=== PATIENT | male | born 1940 | race Hispanic/Latino ===

== ENCOUNTER 2020-05-30 10:10 | Inpatient (IN) | payer MEDICARE, BC ==
[2020-05-30 11:25] LABS: Hemoglobin 11.3 g/dL (13.5-17.5); Mean Corpuscular Hemoglobin 32.9 pg (27.0-33.0); Mean Corpuscular Volume 96.8 fl (81.2-95.1); Mean Platelet Volume 11.6 fl (7.4-10.4); Platelet Count 186 10x3/uL (150-450); RBC Distribution Width 19.9 % (11.5-14.5); Red Blood Cell (RBC) Count 3.43 10x6/uL (4.32-5.72); White Blood Cell (WBC) Count 62.8 10x3/uL (3.5-10.5)
[2020-05-30 11:28] LABS: MDiff Complete? YES
[2020-05-30 11:31] LABS: ALT (SGPT) 24 U/L (8-55); AST (SGOT) 35 U/L (5-34); Albumin 3.9 g/dL (3.4-4.8); Alkaline Phosphatase 85 U/L (40-110); Anion Gap 16 mmol/L (10-20); BUN (Urea Nitrogen) 11 mg/dL (8.4-25.7); Bilirubin, Total 0.7 mg/dL (0.2-1.2); Calc. Creatinine Clearance 0 mL/min (70-130); Carbon Dioxide 25 mmol/L (23-31); Chloride 94 mmol/L (98-107); Globulin 4.3 g/dL (2.4-3.5); Glucose 145 mg/dL (83-110); Potassium 3.7 mmol/L (3.5-5.1); Protein, Total 8.2 g/dL (5.8-8.1); Sodium 131 mmol/L (136-145)
[2020-05-30] MEDS ORDERED: Dexamethasone 10 MG/ML VIAL ONE (11:38)
[2020-05-30] MEDS ORDERED: Acetaminophen 500 MG TAB ONE (11:38)
[2020-05-30 11:48] LABS: Band 18 % (5-11); Lymphocytes 8 % (21-51); Metamyelocyte 1 % (0-0); Monocytes 2 % (0-10); Myelocyte 2 % (0-0); Neutrophil 69 % (42-75)
[2020-05-30 11:50] LABS: Platelet Morphology Comment Appears Adequate; Reflex for Review?? YES
[2020-05-30 11:52] LABS: RBC Morphology Normal
[2020-05-30] MEDS ORDERED: Senokot S 8.6-50 MG TAB PO PRN (13:59)
[2020-05-30] MEDS ORDERED: Bisacodyl 5 MG TAB PO PRN (13:59)
[2020-05-30] MEDS ORDERED: HYDROcodone/Acetaminophen 5/325 mg Tablet PO PRN (13:59)
[2020-05-30] MEDS ORDERED: Bisacodyl 10 MG SUPP PR PRN (13:59)
[2020-05-30] MEDS ORDERED: Guaifenesin DM 100-10/5 ML UDCUP PO PRN (13:59)
[2020-05-30] MEDS ORDERED: Acetaminophen 325 MG TAB PO PRN (13:59)
[2020-05-30 14:09] LABS: Lactic Acid 0.9 mmol/L (0.5-2.2)
[2020-05-30 15:34] VITALS: BMI 26.6
[2020-05-30] MEDS ORDERED: Aspirin Chewable 81 MG TAB PO SCH (16:00)
[2020-05-30] MEDS ORDERED: Tamsulosin HCl 0.4 MG CAP PO SCH (16:00)
[2020-05-30] MEDS ORDERED: Metoprolol Tartrate 50 MG TAB PO SCH (16:00)
[2020-05-30] MEDS ORDERED: Hydroxyurea 500 MG CAP PO SCH (16:00)
[2020-05-30] MEDS ORDERED: REMDESIVIR (EUA) 200 MG in Sodium Chloride 0.9% 250 ML 210 ML IV SCH (19:30)
[2020-05-30] MEDS: Enoxaparin Sodium 40 MG/0.4 ML SYRINGE SC SCH (21:10)
[2020-05-30] MEDS: Timolol 0.5% Ophth Soln 5 ml Bottle EA EYE SCH (21:10)
[2020-05-30] MEDS: Rosuvastatin 20 MG TAB PO SCH (21:10)
[2020-05-30] MEDS: Dorzolamide HCl 2% Ophth Soln 10 ml Bottle EA EYE SCH (21:18)
[2020-05-30] MEDS ORDERED: Melatonin 3 MG TAB PO PRN (23:56)
[2020-05-31 05:11] LABS: SARS-CoV-2 PCR by NAA DETECTED (NotDetected)
[2020-05-31 08:15] LABS: Hemoglobin 10.7 g/dL (13.5-17.5); Mean Corpuscular HGB CONC 33.3 g/dL (32.0-36.0); Mean Corpuscular Hemoglobin 32.6 pg (27.0-33.0); Mean Corpuscular Volume 97.9 fl (81.2-95.1); Mean Platelet Volume 11.8 fl (7.4-10.4); Platelet Count 197 10x3/uL (150-450); RBC Distribution Width 20.1 % (11.5-14.5); Red Blood Cell (RBC) Count 3.28 10x6/uL (4.32-5.72); White Blood Cell (WBC) Count 67.7 10x3/uL (3.5-10.5)
[2020-05-31 08:42] LABS: ALT (SGPT) 37 U/L (8-55); AST (SGOT) 48 U/L (5-34); Albumin 3.4 g/dL (3.4-4.8); Alkaline Phosphatase 87 U/L (40-110); Anion Gap 13 mmol/L (10-20); BUN (Urea Nitrogen) 17 mg/dL (8.4-25.7); Bilirubin, Total 0.4 mg/dL (0.2-1.2); CRP (Inflammatory) 28.33 mg/dL (= or < 0.5); Calc. Creatinine Clearance 81 mL/min (70-130); Calcium 8.4 mg/dL (7.8-10.44); Carbon Dioxide 26 mmol/L (23-31); Chloride 98 mmol/L (98-107); Globulin 3.9 g/dL (2.4-3.5); Glucose 126 mg/dL (83-110); Protein, Total 7.3 g/dL (5.8-8.1); Sodium 133 mmol/L (136-145)
[2020-05-31] MEDS: Ascorbic Acid 500 mg Chewable Tablet PO SCH (08:50)
[2020-05-31] MEDS: Dexamethasone 4 mg/ml Vial SLOW IVP SCH ×2 (08:51→20:46)
[2020-05-31] MEDS: Zinc Sulfate 220 MG CAP PO SCH (08:51)
[2020-05-31] MEDS: Cholecalciferol (Vitamin D3) 400 UNITS TAB PO SCH (08:52)
[2020-05-31] MEDS: Metoprolol Tartrate 50 MG TAB PO SCH (08:52)
[2020-05-31] MEDS: Colchicine 0.6 MG TAB PO SCH ×2 (08:52→20:46)
[2020-05-31] MEDS: Timolol 0.5% Ophth Soln 5 ml Bottle EA EYE SCH ×2 (08:52→20:30)
[2020-05-31 08:53] LABS: Band 21 % (5-11); Lymphocytes 2 % (21-51); Metamyelocyte 2 % (0-0); Neutrophil 70 % (42-75)
[2020-05-31] MEDS: Aspirin Chewable 81 MG TAB PO SCH (08:53)
[2020-05-31] MEDS: Hydroxyurea 500 MG CAP PO SCH (08:53)
[2020-05-31] MEDS: Dorzolamide HCl 2% Ophth Soln 10 ml Bottle EA EYE SCH ×2 (08:53→21:04)
[2020-05-31 08:54] LABS: Monocytes 3 % (0-10); Myelocyte 2 % (0-0)
[2020-05-31] MEDS: Enoxaparin Sodium 40 MG/0.4 ML SYRINGE SC SCH ×2 (08:54→20:46)
[2020-05-31 08:56] LABS: Large Platelets SLIGHT; Platelet Morphology Comment Appears Adequate
[2020-05-31] MEDS: Tamsulosin HCl 0.4 MG CAP PO SCH (08:57)
[2020-05-31 09:00] LABS: MDiff Complete? YES
[2020-05-31] MEDS ORDERED: Dexamethasone 4 mg/ml Vial SLOW IVP SCH (09:00)
[2020-05-31] MEDS: Lidocaine 5% Patch TD SCH (10:44)
[2020-05-31] MEDS: REMDESIVIR (EUA) 100 MG in Sodium Chloride 0.9% 250 ML 230 ML IV SCH (19:56)
[2020-05-31] MEDS: Rosuvastatin 20 MG TAB PO SCH (20:46)
[2020-05-31] MEDS: Transdermal Patch Removal TOP SCH (22:38)
[2020-06-01 06:08] LABS: Hemoglobin 10.7 g/dL (13.5-17.5); Mean Corpuscular HGB CONC 33.3 g/dL (32.0-36.0); Mean Corpuscular Hemoglobin 33.3 pg (27.0-33.0); Mean Platelet Volume 12.1 fl (7.4-10.4); Platelet Count 213 10x3/uL (150-450); Red Blood Cell (RBC) Count 3.21 10x6/uL (4.32-5.72); White Blood Cell (WBC) Count 58.7 10x3/uL (3.5-10.5)
[2020-06-01 06:23] LABS: ALT (SGPT) 62 U/L (8-55); AST (SGOT) 65 U/L (5-34); Albumin 3.3 g/dL (3.4-4.8); Alkaline Phosphatase 87 U/L (40-110); Anion Gap 12 mmol/L (10-20); BUN (Urea Nitrogen) 21 mg/dL (8.4-25.7); Bilirubin, Total 0.3 mg/dL (0.2-1.2); CRP (Inflammatory) 18.63 mg/dL (= or < 0.5); Calc. Creatinine Clearance 82 mL/min (70-130); Calcium 8.1 mg/dL (7.8-10.44); Carbon Dioxide 29 mmol/L (23-31); Chloride 100 mmol/L (98-107); Globulin 3.7 g/dL (2.4-3.5); Glucose 138 mg/dL (83-110); Potassium 4.8 mmol/L (3.5-5.1); Sodium 136 mmol/L (136-145)
[2020-06-01 06:49] LABS: MDiff Complete? YES
[2020-06-01 06:52] LABS: Band 11 % (5-11); Lymphocytes 2 % (21-51); Myelocyte 1 % (0-0); Neutrophil 83 % (42-75)
[2020-06-01 06:53] LABS: Anisocytosis SLIGHT = 6-15 cells (100X) (0-5/hpf); Metamyelocyte 1 % (0-0); Monocytes 2 % (0-10)
[2020-06-01 06:54] LABS: Platelet Morphology Comment Appears Decreased
[2020-06-01] MEDS: Dorzolamide HCl 2% Ophth Soln 10 ml Bottle EA EYE SCH ×3 (07:39→21:15)
[2020-06-01] MEDS: Metoprolol Tartrate 50 MG TAB PO SCH (09:02)
[2020-06-01] MEDS: Aspirin Chewable 81 MG TAB PO SCH (09:02)
[2020-06-01] MEDS: Cholecalciferol (Vitamin D3) 400 UNITS TAB PO SCH (09:02)
[2020-06-01] MEDS: Tamsulosin HCl 0.4 MG CAP PO SCH (09:02)
[2020-06-01] MEDS: Hydroxyurea 500 MG CAP PO SCH (09:02)
[2020-06-01] MEDS: Ascorbic Acid 500 mg Chewable Tablet PO SCH (09:02)
[2020-06-01] MEDS: Zinc Sulfate 220 MG CAP PO SCH (09:02)
[2020-06-01] MEDS: Colchicine 0.6 MG TAB PO SCH ×2 (09:02→21:14)
[2020-06-01] MEDS: Enoxaparin Sodium 40 MG/0.4 ML SYRINGE SC SCH ×2 (09:03→21:14)
[2020-06-01] MEDS: Dexamethasone 4 mg/ml Vial SLOW IVP SCH ×2 (09:03→21:15)
[2020-06-01] MEDS: Timolol 0.5% Ophth Soln 5 ml Bottle EA EYE SCH ×2 (09:05→21:13)
[2020-06-01] MEDS: Lidocaine 5% Patch TD SCH (09:06)
[2020-06-01 17:31] LABS: SARS-CoV-2 IgG Ab Non-Reactive (NonReactive)
[2020-06-01] MEDS: REMDESIVIR (EUA) 100 MG in Sodium Chloride 0.9% 250 ML 230 ML IV SCH (19:29)
[2020-06-01] MEDS: Rosuvastatin 20 MG TAB PO SCH (21:14)
[2020-06-02 08:01] LABS: Hemoglobin 10.8 g/dL (13.5-17.5); Mean Corpuscular HGB CONC 33.2 g/dL (32.0-36.0); Mean Corpuscular Hemoglobin 32.7 pg (27.0-33.0); Mean Corpuscular Volume 98.5 fl (81.2-95.1); Mean Platelet Volume 11.7 fl (7.4-10.4); Platelet Count 231 10x3/uL (150-450); RBC Distribution Width 20.2 % (11.5-14.5); White Blood Cell (WBC) Count 48.4 10x3/uL (3.5-10.5)
[2020-06-02 08:09] LABS: ALT (SGPT) 68 U/L (8-55); AST (SGOT) 51 U/L (5-34); Albumin 3.1 g/dL (3.4-4.8); Alkaline Phosphatase 69 U/L (40-110); Anion Gap 13 mmol/L (10-20); BUN (Urea Nitrogen) 21 mg/dL (8.4-25.7); Bilirubin, Total 0.3 mg/dL (0.2-1.2); CRP (Inflammatory) 8.63 mg/dL (= or < 0.5); Calc. Creatinine Clearance 84 mL/min (70-130); Carbon Dioxide 27 mmol/L (23-31); Chloride 101 mmol/L (98-107); Globulin 3.5 g/dL (2.4-3.5); Glucose 119 mg/dL (83-110); Potassium 4.6 mmol/L (3.5-5.1); Protein, Total 6.6 g/dL (5.8-8.1); Sodium 136 mmol/L (136-145)
[2020-06-02 09:20] LABS: MDiff Complete? YES
[2020-06-02 09:26] LABS: Band 4 % (5-11); Neutrophil 88 % (42-75)
[2020-06-02 09:28] LABS: Lymphocytes 4 % (21-51)
[2020-06-02 09:29] LABS: Metamyelocyte 3 % (0-0); Myelocyte 1 % (0-0)
[2020-06-02 09:30] LABS: Macrocytosis MODERATE=16-30 cells (100X) (0-5/hpf); Microcytosis SLIGHT = 6-15 cells (100X) (0-5/hpf)
[2020-06-02 09:31] LABS: Anisocytosis MODERATE=16-30 cells (100X) (0-5/hpf); Platelet Morphology Comment Appears Adequate
[2020-06-02] MEDS: Ascorbic Acid 500 mg Chewable Tablet PO SCH (10:50)
[2020-06-02] MEDS: Colchicine 0.6 MG TAB PO SCH ×2 (10:50→21:36)
[2020-06-02] MEDS: Aspirin Chewable 81 MG TAB PO SCH (10:50)
[2020-06-02] MEDS: Cholecalciferol (Vitamin D3) 400 UNITS TAB PO SCH (10:50)
[2020-06-02] MEDS: Zinc Sulfate 220 MG CAP PO SCH (10:51)
[2020-06-02] MEDS: Dexamethasone 4 mg/ml Vial SLOW IVP SCH ×2 (10:51→21:36)
[2020-06-02] MEDS: Hydroxyurea 500 MG CAP PO SCH (10:51)
[2020-06-02] MEDS: Metoprolol Tartrate 50 MG TAB PO SCH (10:51)
[2020-06-02] MEDS: Lidocaine 5% Patch TD SCH (10:51)
[2020-06-02] MEDS: Dorzolamide HCl 2% Ophth Soln 10 ml Bottle EA EYE SCH (10:51)
[2020-06-02] MEDS: Tamsulosin HCl 0.4 MG CAP PO SCH (10:51)
[2020-06-02] MEDS: Timolol 0.5% Ophth Soln 5 ml Bottle EA EYE SCH ×2 (10:51→21:36)
[2020-06-02] MEDS: Enoxaparin Sodium 40 MG/0.4 ML SYRINGE SC SCH ×2 (10:51→21:36)
[2020-06-02] MEDS: REMDESIVIR (EUA) 100 MG in Sodium Chloride 0.9% 250 ML 230 ML IV SCH (19:28)
[2020-06-02] MEDS: Rosuvastatin 20 MG TAB PO SCH (21:36)
[2020-06-02] MEDS: Transdermal Patch Removal TOP SCH (21:47)
[2020-06-03 07:36] LABS: Hemoglobin 11.4 g/dL (13.5-17.5); Mean Corpuscular HGB CONC 33.5 g/dL (32.0-36.0); Mean Corpuscular Hemoglobin 33.4 pg (27.0-33.0); Mean Corpuscular Volume 99.7 fl (81.2-95.1); Mean Platelet Volume 11.5 fl (7.4-10.4); Red Blood Cell (RBC) Count 3.41 10x6/uL (4.32-5.72); White Blood Cell (WBC) Count 32.7 10x3/uL (3.5-10.5)
[2020-06-03 07:37] LABS: #Basophils 0.3 10x3/uL (0.0-0.2); #Monocytes 0.3 10x3/uL (0.0-1.1); #Neutrophils 26.1 10x3/uL (1.5-8.4); %Basophils 0.9 % (0.0-2.0); %Lymphocytes 6.2 % (18.0-47.0); %Monocytes 0.8 % (0.0-10.0); %Neutrophils 79.7 % (40.0-75.0)
[2020-06-03 07:38] LABS: Platelet Count 236 10x3/uL (150-450)
[2020-06-03 08:02] LABS: ALT (SGPT) 78 U/L (8-55); AST (SGOT) 64 U/L (5-34); Albumin 3.1 g/dL (3.4-4.8); Alkaline Phosphatase 60 U/L (40-110); Anion Gap 14 mmol/L (10-20); BUN (Urea Nitrogen) 19 mg/dL (8.4-25.7); Bilirubin, Total 0.3 mg/dL (0.2-1.2); Calc. Creatinine Clearance 86 mL/min (70-130); Carbon Dioxide 26 mmol/L (23-31); Chloride 101 mmol/L (98-107); Globulin 3.7 g/dL (2.4-3.5); Glucose 112 mg/dL (83-110); Magnesium 2.5 mg/dL (1.6-2.6); Potassium 4.6 mmol/L (3.5-5.1); Protein, Total 6.8 g/dL (5.8-8.1); Sodium 136 mmol/L (136-145)
[2020-06-03] MEDS: Enoxaparin Sodium 40 MG/0.4 ML SYRINGE SC SCH ×2 (09:01→22:29)
[2020-06-03] MEDS: Ascorbic Acid 500 mg Chewable Tablet PO SCH (09:01)
[2020-06-03] MEDS: Zinc Sulfate 220 MG CAP PO SCH (09:01)
[2020-06-03] MEDS: Aspirin Chewable 81 MG TAB PO SCH (09:01)
[2020-06-03] MEDS: Tamsulosin HCl 0.4 MG CAP PO SCH (09:01)
[2020-06-03] MEDS: Metoprolol Tartrate 50 MG TAB PO SCH (09:01)
[2020-06-03] MEDS: Colchicine 0.6 MG TAB PO SCH ×2 (09:02→22:28)
[2020-06-03] MEDS: Dexamethasone 4 mg/ml Vial SLOW IVP SCH ×2 (09:02→22:29)
[2020-06-03] MEDS: Cholecalciferol (Vitamin D3) 400 UNITS TAB PO SCH (09:02)
[2020-06-03] MEDS: Hydroxyurea 500 MG CAP PO SCH (09:12)
[2020-06-03] MEDS: Timolol 0.5% Ophth Soln 5 ml Bottle EA EYE SCH ×2 (09:30→22:30)
[2020-06-03 14:07] LABS: Platelet Morphology Comment Appears Adequate
[2020-06-03] MEDS: Lidocaine 5% Patch TD SCH (17:52)
[2020-06-03] MEDS: Dorzolamide HCl 2% Ophth Soln 10 ml Bottle EA EYE SCH ×2 (17:55→22:28)
[2020-06-03] MEDS: REMDESIVIR (EUA) 100 MG in Sodium Chloride 0.9% 250 ML 230 ML IV SCH (20:03)
[2020-06-03] MEDS: Rosuvastatin 20 MG TAB PO SCH (22:30)
[2020-06-04] MEDS: Transdermal Patch Removal TOP SCH ×2 (02:53→11:34)
[2020-06-04 05:56] LABS: Hemoglobin 11.3 g/dL (13.5-17.5); Mean Corpuscular HGB CONC 33.2 g/dL (32.0-36.0); Mean Corpuscular Hemoglobin 33.4 pg (27.0-33.0); Mean Corpuscular Volume 100.6 fl (81.2-95.1); Mean Platelet Volume 11.4 fl (7.4-10.4); Platelet Count 236 10x3/uL (150-450); RBC Distribution Width 19.7 % (11.5-14.5); Red Blood Cell (RBC) Count 3.38 10x6/uL (4.32-5.72); White Blood Cell (WBC) Count 25.6 10x3/uL (3.5-10.5)
[2020-06-04 06:00] LABS: ALT (SGPT) 82 U/L (8-55); AST (SGOT) 58 U/L (5-34); Albumin 3.2 g/dL (3.4-4.8); Alkaline Phosphatase 63 U/L (40-110); Anion Gap 15 mmol/L (10-20); BUN (Urea Nitrogen) 20 mg/dL (8.4-25.7); Bilirubin, Total 0.4 mg/dL (0.2-1.2); Calc. Creatinine Clearance 82 mL/min (70-130); Calcium 8.4 mg/dL (7.8-10.44); Carbon Dioxide 27 mmol/L (23-31); Chloride 101 mmol/L (98-107); Globulin 3.5 g/dL (2.4-3.5); Glucose 125 mg/dL (83-110); Magnesium 2.5 mg/dL (1.6-2.6); Potassium 5.1 mmol/L (3.5-5.1); Protein, Total 6.7 g/dL (5.8-8.1); Sodium 138 mmol/L (136-145)
[2020-06-04 06:44] LABS: MDiff Complete? YES
[2020-06-04 06:48] LABS: Neutrophil 70 % (42-75)
[2020-06-04 06:49] LABS: Anisocytosis MODERATE=16-30 cells (100X) (0-5/hpf); Band 14 % (5-11); Large Platelets MODERATE; Lymphocytes 10 % (21-51); Metamyelocyte 3 % (0-0); Monocytes 3 % (0-10); Platelet Morphology Comment Appears Adequate; Poikilocytosis SLIGHT = 6-15 cells (100X) (0-5/hpf)
[2020-06-04] MEDS: Ascorbic Acid 500 mg Chewable Tablet PO SCH (09:10)
[2020-06-04] MEDS: Aspirin Chewable 81 MG TAB PO SCH (09:11)
[2020-06-04] MEDS: Colchicine 0.6 MG TAB PO SCH ×2 (09:11→20:00)
[2020-06-04] MEDS: Zinc Sulfate 220 MG CAP PO SCH (09:11)
[2020-06-04] MEDS: Hydroxyurea 500 MG CAP PO SCH (09:11)
[2020-06-04] MEDS: Tamsulosin HCl 0.4 MG CAP PO SCH (09:11)
[2020-06-04] MEDS: Metoprolol Tartrate 50 MG TAB PO SCH (09:11)
[2020-06-04] MEDS: Cholecalciferol (Vitamin D3) 400 UNITS TAB PO SCH (09:11)
[2020-06-04] MEDS: Enoxaparin Sodium 40 MG/0.4 ML SYRINGE SC SCH ×2 (09:11→20:00)
[2020-06-04] MEDS: Dexamethasone 4 mg/ml Vial SLOW IVP SCH ×2 (09:12→20:00)
[2020-06-04] MEDS: Timolol 0.5% Ophth Soln 5 ml Bottle EA EYE SCH ×2 (09:36→20:22)
[2020-06-04] MEDS: Dorzolamide HCl 2% Ophth Soln 10 ml Bottle EA EYE SCH ×2 (10:34→20:22)
[2020-06-04] MEDS: Lidocaine 5% Patch TD SCH (11:46)
[2020-06-04] MEDS: Rosuvastatin 20 MG TAB PO SCH (20:00)
[2020-06-05] MEDS: Transdermal Patch Removal TOP SCH (00:15)
[2020-06-05 04:50] LABS: Hemoglobin 11.1 g/dL (13.5-17.5); Mean Corpuscular Hemoglobin 32.7 pg (27.0-33.0); Mean Corpuscular Volume 99.1 fl (81.2-95.1); Mean Platelet Volume 11.3 fl (7.4-10.4); Platelet Count 227 10x3/uL (150-450); RBC Distribution Width 19.4 % (11.5-14.5); Red Blood Cell (RBC) Count 3.39 10x6/uL (4.32-5.72); White Blood Cell (WBC) Count 23.4 10x3/uL (3.5-10.5)
[2020-06-05 05:05] LABS: ALT (SGPT) 78 U/L (8-55); AST (SGOT) 49 U/L (5-34); Albumin 3.2 g/dL (3.4-4.8); Alkaline Phosphatase 59 U/L (40-110); Anion Gap 13 mmol/L (10-20); BUN (Urea Nitrogen) 22 mg/dL (8.4-25.7); Bilirubin, Total 0.4 mg/dL (0.2-1.2); Calc. Creatinine Clearance 78 mL/min (70-130); Calcium 8.5 mg/dL (7.8-10.44); Carbon Dioxide 29 mmol/L (23-31); Chloride 100 mmol/L (98-107); Globulin 3.6 g/dL (2.4-3.5); Glucose 125 mg/dL (83-110); Magnesium 2.5 mg/dL (1.6-2.6); Potassium 5.7 mmol/L (3.5-5.1); Protein, Total 6.8 g/dL (5.8-8.1); Sodium 136 mmol/L (136-145)
[2020-06-05 05:32] LABS: MDiff Complete? YES
[2020-06-05 05:38] LABS: Anisocytosis MARKED = >30 cells (100X) (0-5/hpf); Band 16 % (5-11); Lymphocytes 10 % (21-51); Metamyelocyte 4 % (0-0); Monocytes 3 % (0-10); Neutrophil 67 % (42-75); Poikilocytosis SLIGHT = 6-15 cells (100X) (0-5/hpf)
[2020-06-05 05:39] LABS: Giant Platelets SLIGHT; Large Platelets SLIGHT; Platelet Morphology Comment Appears Adequate
[2020-06-05 07:59] VITALS: TEMP 97.8
[2020-06-05] MEDS: Hydroxyurea 500 MG CAP PO SCH (08:03)
[2020-06-05] MEDS: Aspirin Chewable 81 MG TAB PO SCH (08:03)
[2020-06-05] MEDS: Tamsulosin HCl 0.4 MG CAP PO SCH (08:03)
[2020-06-05] MEDS: Metoprolol Tartrate 50 MG TAB PO SCH (08:03)
[2020-06-05] MEDS: Zinc Sulfate 220 MG CAP PO SCH (08:03)
[2020-06-05] MEDS: Cholecalciferol (Vitamin D3) 400 UNITS TAB PO SCH (08:03)
[2020-06-05] MEDS: Ascorbic Acid 500 mg Chewable Tablet PO SCH (08:03)
[2020-06-05] MEDS: Colchicine 0.6 MG TAB PO SCH (08:03)
[2020-06-05] MEDS: Enoxaparin Sodium 40 MG/0.4 ML SYRINGE SC SCH (08:04)
[2020-06-05] MEDS: Dexamethasone 4 mg/ml Vial SLOW IVP SCH (08:04)
[2020-06-05] MEDS: Timolol 0.5% Ophth Soln 5 ml Bottle EA EYE SCH (08:05)
[2020-06-05] MEDS: Dorzolamide HCl 2% Ophth Soln 10 ml Bottle EA EYE SCH (08:24)
[2020-06-05] MEDS: Lidocaine 5% Patch TD SCH ×2 (11:28→12:11)
[2020-06-05 11:42] VITALS: BP 130/70
== END 2020-06-05 14:46 | disposition home or self-care (01) | DRG 177 ==
LOC: CSHERS 10:10 → CSHTELE 15:10
PROVIDERS: ADMIT Internal Medicine; ATTEND Internal Medicine
PROC: XW033E5 Introduction of Remdesivir Anti-infective into Peripheral Vein, Percutaneous Approach, New Technology Group 5 (ICD-10-PCS; principal; 2020-05-30)
PROC: 8E0ZXY6 Isolation (ICD-10-PCS; 2020-05-30)
DX: U07.1 COVID-19 (principal); J96.01 Acute respiratory failure with hypoxia; D47.1 Chronic myeloproliferative disease; E78.5 Hyperlipidemia, unspecified; N40.0 Benign prostatic hyperplasia without lower urinary tract symptoms; I10 Essential (primary) hypertension; R91.8 Other nonspecific abnormal finding of lung field; Z90.49 Acquired absence of other specified parts of digestive tract; Z87.891 Personal history of nicotine dependence; Z82.49 Family history of ischemic heart disease and other diseases of the circulatory system; Z79.82 Long term (current) use of aspirin; Z79.899 Other long term (current) drug therapy; I25.2 Old myocardial infarction
CPT/HCPCS: 36415; 71045; 80053; 83605; 83735; 85025; 85060; 85379; 86140; 86769; 87040; 87635; 93005; 94760; 96374; J1100; J1650; J7050; U0003; U0005

== ENCOUNTER 2020-06-24 19:00 | Emergency (ER) | payer MEDICARE, BC ==
[2020-06-24 19:48] LABS: #Monocytes 0.2 10x3/uL (0.0-1.1); %Basophils 0.1 % (0.0-2.0); %Eosinophils 0.5 % (0.0-6.0); %Lymphocytes 20.9 % (18.0-47.0); %Monocytes 2.5 % (0.0-10.0); %Neutrophils 74.6 % (40.0-75.0); Hemoglobin 9.8 g/dL (13.5-17.5); Mean Corpuscular HGB CONC 33.2 g/dL (32.0-36.0); Mean Corpuscular Hemoglobin 32.7 pg (27.0-33.0); Mean Corpuscular Volume 98.3 fl (81.2-95.1); Mean Platelet Volume 11.2 fl (7.4-10.4); Platelet Count 202 10x3/uL (150-450); RBC Distribution Width 17.7 % (11.5-14.5)
[2020-06-24 20:04] LABS: ALT (SGPT) 37 U/L (8-55); AST (SGOT) 53 U/L (5-34); Albumin 3.4 g/dL (3.4-4.8); Alkaline Phosphatase 63 U/L (40-110); Anion Gap 15 mmol/L (10-20); BUN (Urea Nitrogen) 13 mg/dL (8.4-25.7); Bilirubin, Total 0.6 mg/dL (0.2-1.2); Calc. Creatinine Clearance 0 mL/min (70-130); Calcium 7.8 mg/dL (7.8-10.44); Carbon Dioxide 23 mmol/L (23-31); Chloride 95 mmol/L (98-107); Globulin 3.2 g/dL (2.4-3.5); Glucose 131 mg/dL (83-110); Potassium 4.3 mmol/L (3.5-5.1); Protein, Total 6.6 g/dL (5.8-8.1); Sodium 129 mmol/L (136-145)
== END 2020-06-24 22:14 | disposition home or self-care (01) ==
LOC: CSHERS 19:00
DX: R06.02 Shortness of breath (principal); I25.2 Old myocardial infarction; E78.5 Hyperlipidemia, unspecified; Z87.891 Personal history of nicotine dependence; Z79.82 Long term (current) use of aspirin; Z79.899 Other long term (current) drug therapy
CPT/HCPCS: 71045; 80053; 83605; 84484; 85025; 93005

== ENCOUNTER 2021-06-17 17:39 | Inpatient (IN) | payer MEDICARE, BC ==
[2021-06-17 18:49] LABS: #Monocytes 5.1 10x3/uL (0.0-1.1); #Neutrophils 5.1 10x3/uL (1.5-8.4); %Basophils 0.3 % (0.0-2.0); %Lymphocytes 22.5 % (18.0-47.0); %Monocytes 33.4 % (0.0-10.0); %Neutrophils 33.9 % (40.0-75.0); Hemoglobin 6.6 g/dL (13.5-17.5); Mean Corpuscular HGB CONC 34.7 g/dL (32.0-36.0); Mean Corpuscular Hemoglobin 29.6 pg (27.0-33.0); Mean Corpuscular Volume 85.2 fl (81.2-95.1); Platelet Count 31 10x3/uL (150-450); RBC Distribution Width 16.3 % (11.5-14.5); Red Blood Cell (RBC) Count 2.23 10x6/uL (4.32-5.72); White Blood Cell (WBC) Count 15.1 10x3/uL (3.5-10.5)
[2021-06-17 18:59] LABS: ALT (SGPT) 25 U/L (8-55); AST (SGOT) 46 U/L (5-34); Albumin 3.1 g/dL (3.4-4.8); Alkaline Phosphatase 249 U/L (40-110); Anion Gap 15 mmol/L (10-20); BUN (Urea Nitrogen) 18 mg/dL (8.4-25.7); Bilirubin, Total 1.1 mg/dL (0.2-1.2); Calc. Creatinine Clearance 0 mL/min (70-130); Calcium 7.9 mg/dL (7.8-10.44); Carbon Dioxide 20 mmol/L (23-31); Chloride 101 mmol/L (98-107); Globulin 3.5 g/dL (2.4-3.5); Glucose 139 mg/dL (83-110); Lipase 9 U/L (8-78); Protein, Total 6.6 g/dL (5.8-8.1); Sodium 132 mmol/L (136-145)
[2021-06-17 19:18] LABS: Band 6 % (5-11); CKMB 0.8 ng/mL (0-6.6); Lymphocytes 40 % (21-51); Metamyelocyte 3 % (0-0); Monocytes 1 % (0-10); Myelocyte 1 % (0-0); Nucleated RBC 2 % (0); Reactive Lymphocytes 2 % (0-10)
[2021-06-17 19:19] LABS: Platelet Morphology Comment Appears Decreased
[2021-06-17 19:20] LABS: Anisocytosis SLIGHT = 6-15 cells (100X) (0-5/hpf); Hypochromia SLIGHT = 6-15 cells (100X) (0-5/hpf); Reflex for Review?? YES
[2021-06-17 19:34] LABS: SARS-CoV-2 NAA Rapid Test Not Detected (NotDetected)
[2021-06-17 20:36] LABS: Bilirubin Neg (Negative); Blood, Urine 25 (Negative); Clarity Clear (Clear); Glucose, Urine (Dipstick) Normal (Negative); Ketone, Urine Negative (Negative); Leukocyte 25 (Negative); Nitrite Negative (Negative); Protein, Urine (Dipstick) 15 mg/dl (Neg-Trace); Specific Gravity, Urine 1.015 (1.002-1.036)
[2021-06-17 20:41] LABS: WBC/HPF 0-3 HPF (0-3)
[2021-06-17 20:42] LABS: Bacteria/HPF None Seen HPF (None Seen); Squamous Epithelial 0-3 HPF (0-3)
[2021-06-17] MEDS ORDERED: Ondansetron PF 4 MG/2 ML Vial IVP PRN (21:07)
[2021-06-17] MEDS ORDERED: Zolpidem Tartrate 5 MG TAB PO PRN (21:07)
[2021-06-17] MEDS ORDERED: Guaifenesin DM 100-10/5 ML UDCUP PO PRN (21:07)
[2021-06-17] MEDS ORDERED: Senokot S 8.6-50 MG TAB PO PRN (21:07)
[2021-06-17] MEDS ORDERED: Calcium Carbonate 500 MG ChewTAB PO PRN (21:07)
[2021-06-17] MEDS ORDERED: Nitroglycerin 0.4 MG TAB (25 Tab Bottle) SL PRN (21:17)
[2021-06-17] MEDS ORDERED: Metoprolol Tartrate 25 MG TAB PO SCH (21:30)
[2021-06-17 23:17] LABS: CKMB 0.9 ng/mL (0-6.6)
[2021-06-17] MEDS: Acetaminophen 325 MG TAB PO PRN (23:59)
[2021-06-18] MEDS ORDERED: diphenhydrAMINE 50 MG CAP PO SCH (00:15)
[2021-06-18] MEDS ORDERED: diphenhydrAMINE 25 MG CAP PO SCH ×2 (01:00→02:45)
[2021-06-18] MEDS ORDERED: traMADol HCl 50 MG TAB PO SCH (02:45)
[2021-06-18] MEDS ORDERED: Morphine 4 MG/ML VIAL SLOW IVP SCH (05:00)
[2021-06-18 05:17] VITALS: BMI 24.5
[2021-06-18 06:42] LABS: Hemoglobin 9.1 g/dL (13.5-17.5); Mean Corpuscular HGB CONC 34.9 g/dL (32.0-36.0); Mean Corpuscular Volume 86.1 fl (81.2-95.1); RBC Distribution Width 15.3 % (11.5-14.5); Red Blood Cell (RBC) Count 3.03 10x6/uL (4.32-5.72); White Blood Cell (WBC) Count 20.9 10x3/uL (3.5-10.5)
[2021-06-18 06:43] LABS: Platelet Count 36 10x3/uL (150-450)
[2021-06-18 06:44] LABS: MDiff Complete? YES
[2021-06-18 06:51] LABS: Band 11 % (5-11); Eosinophils 1 % (0-10); Lymphocytes 26 % (21-51); Metamyelocyte 1 % (0-0); Monocytes 3 % (0-10); Myelocyte 1 % (0-0); Neutrophil 27 % (42-75); Reactive Lymphocytes 12 % (0-10)
[2021-06-18 06:52] LABS: Nucleated RBC 2 % (0)
[2021-06-18 06:56] LABS: Platelet Morphology Comment Appears Decreased
[2021-06-18 08:20] LABS: Anion Gap 14 mmol/L (10-20); BUN (Urea Nitrogen) 15 mg/dL (8.4-25.7); Calc. Creatinine Clearance 61 mL/min (70-130); Calcium 8.4 mg/dL (7.8-10.44); Carbon Dioxide 23 mmol/L (23-31); Chloride 98 mmol/L (98-107); Glucose 130 mg/dL (83-110); Potassium 3.6 mmol/L (3.5-5.1); Sodium 131 mmol/L (136-145)
[2021-06-18] MEDS ORDERED: DorzolamidE/Timolol 2%/0.5% Ophth Soln 10 ml Bottle EA EYE SCH (09:00)
[2021-06-18] MEDS ORDERED: Metoprolol Tartrate 25 MG TAB PO SCH (09:00)
[2021-06-18] MEDS ORDERED: Iopamidol 370 76% 100 ML VIAL ONE (09:22)
[2021-06-18] MEDS: Tamsulosin HCl 0.4 MG CAP PO SCH (09:33)
[2021-06-18] MEDS: Multivitamin W/ Minerals 1 TAB PO SCH (09:33)
[2021-06-18] MEDS: Timolol 0.5% Ophth Soln 5 ml Bottle EA EYE SCH ×2 (09:33→22:00)
[2021-06-18] MEDS: Rosuvastatin 20 MG TAB PO SCH (09:33)
[2021-06-18] MEDS: Aspirin Chewable 81 MG TAB PO SCH (09:33)
[2021-06-18] MEDS: Dorzolamide HCl 2% Ophth Soln 10 ml Bottle EA EYE SCH ×2 (09:35→22:05)
[2021-06-18] MEDS: cefTRIAXone\\ROCEPHIN 2 GM in Sodium Chloride 0.9% 100 ML IVPB SCH (17:09)
[2021-06-18 20:43] LABS: Legionella Urinary Ag Negative (Negative); Strep pneumo Urine Ag NEGATIVE (NEGATIVE)
[2021-06-19] MEDS: Acetaminophen 325 MG TAB PO PRN ×3 (02:19→22:49)
[2021-06-19] MEDS ORDERED: Magnesium Citrate 300 ML BOT PO SCH (09:00)
[2021-06-19] MEDS: Hydroxyurea 500 MG CAP PO SCH (09:42)
[2021-06-19] MEDS: Multivitamin W/ Minerals 1 TAB PO SCH (09:42)
[2021-06-19] MEDS: Tamsulosin HCl 0.4 MG CAP PO SCH (09:42)
[2021-06-19] MEDS: Aspirin Chewable 81 MG TAB PO SCH (09:42)
[2021-06-19] MEDS: Rosuvastatin 20 MG TAB PO SCH (09:43)
[2021-06-19] MEDS: Multivit, Therapeutic 1 TAB PO SCH (09:43)
[2021-06-19] MEDS: Metoprolol Tartrate 50 MG TAB PO SCH (09:43)
[2021-06-19 09:44] LABS: Hemoglobin 8.4 g/dL (13.5-17.5); Mean Corpuscular HGB CONC 34.9 g/dL (32.0-36.0); Mean Corpuscular Hemoglobin 29.6 pg (27.0-33.0); Mean Corpuscular Volume 84.9 fl (81.2-95.1); RBC Distribution Width 15.7 % (11.5-14.5); Red Blood Cell (RBC) Count 2.84 10x6/uL (4.32-5.72); White Blood Cell (WBC) Count 9.9 10x3/uL (3.5-10.5)
[2021-06-19] MEDS: Timolol 0.5% Ophth Soln 5 ml Bottle EA EYE SCH ×2 (09:46→21:40)
[2021-06-19] MEDS: Dorzolamide HCl 2% Ophth Soln 10 ml Bottle EA EYE SCH ×2 (09:46→21:38)
[2021-06-19 09:48] LABS: Platelet Count 26 10x3/uL (150-450)
[2021-06-19 09:49] LABS: MDiff Complete? YES
[2021-06-19 09:57] LABS: ALT (SGPT) 24 U/L (8-55); AST (SGOT) 37 U/L (5-34); Albumin 3.1 g/dL (3.4-4.8); Alkaline Phosphatase 183 U/L (40-110); Anion Gap 12 mmol/L (10-20); BUN (Urea Nitrogen) 17 mg/dL (8.4-25.7); Bilirubin, Total 0.9 mg/dL (0.2-1.2); Calc. Creatinine Clearance 61 mL/min (70-130); Calcium 8.5 mg/dL (7.8-10.44); Carbon Dioxide 24 mmol/L (23-31); Chloride 100 mmol/L (98-107); Glucose 123 mg/dL (83-110); Lipase 12 U/L (8-78); Potassium 3.6 mmol/L (3.5-5.1); Protein, Total 7.1 g/dL (5.8-8.1); Sodium 132 mmol/L (136-145)
[2021-06-19 11:42] LABS: Band 3 % (5-11); Eosinophils 3 % (0-10); Lymphocytes 58 % (21-51); Metamyelocyte 1 % (0-0); Monocytes 3 % (0-10); Neutrophil 32 % (42-75)
[2021-06-19 11:47] LABS: Anisocytosis SLIGHT = 6-15 cells (100X) (0-5/hpf); Platelet Morphology Comment Appears Decreased
[2021-06-19] MEDS: cefTRIAXone\\ROCEPHIN 2 GM in Sodium Chloride 0.9% 100 ML IVPB SCH (14:57)
[2021-06-19] MEDS ORDERED: diphenhydrAMINE 25 MG CAP PO SCH (22:00)
[2021-06-20 04:51] LABS: #Monocytes 1.6 10x3/uL (0.0-1.1); #Neutrophils 2.1 10x3/uL (1.5-8.4); %Basophils 0.4 % (0.0-2.0); %Lymphocytes 33.8 % (18.0-47.0); %Monocytes 23.7 % (0.0-10.0); %Neutrophils 30.8 % (40.0-75.0); Hemoglobin 7.2 g/dL (13.5-17.5); Mean Corpuscular HGB CONC 34.4 g/dL (32.0-36.0); Mean Corpuscular Hemoglobin 30.1 pg (27.0-33.0); Mean Corpuscular Volume 87.4 fl (81.2-95.1); Platelet Count 16 10x3/uL (150-450); RBC Distribution Width 15.7 % (11.5-14.5); Red Blood Cell (RBC) Count 2.39 10x6/uL (4.32-5.72); White Blood Cell (WBC) Count 6.8 10x3/uL (3.5-10.5)
[2021-06-20 05:23] LABS: Anion Gap 12 mmol/L (10-20); BUN (Urea Nitrogen) 21 mg/dL (8.4-25.7); Calc. Creatinine Clearance 63 mL/min (70-130); Calcium 8.2 mg/dL (7.8-10.44); Carbon Dioxide 25 mmol/L (23-31); Chloride 101 mmol/L (98-107); Glucose 91 mg/dL (83-110); Potassium 4.2 mmol/L (3.5-5.1); Sodium 134 mmol/L (136-145)
[2021-06-20 05:31] LABS: MDiff Complete? YES
[2021-06-20 05:32] LABS: Platelet Morphology Comment Appears Decreased
[2021-06-20 05:33] LABS: Anisocytosis SLIGHT = 6-15 cells (100X) (0-5/hpf)
[2021-06-20 05:37] LABS: Band 11 % (5-11); Lymphocytes 33 % (21-51); Monocytes 21 % (0-10); Neutrophil 35 % (42-75); Nucleated RBC 1 % (0)
[2021-06-20] MEDS: Dorzolamide HCl 2% Ophth Soln 10 ml Bottle EA EYE SCH (09:37)
[2021-06-20] MEDS: Metoprolol Tartrate 50 MG TAB PO SCH (09:37)
[2021-06-20] MEDS: Multivit, Therapeutic 1 TAB PO SCH (09:37)
[2021-06-20] MEDS: Aspirin Chewable 81 MG TAB PO SCH (09:37)
[2021-06-20] MEDS: Hydroxyurea 500 MG CAP PO SCH (09:37)
[2021-06-20] MEDS: Timolol 0.5% Ophth Soln 5 ml Bottle EA EYE SCH (09:38)
[2021-06-20] MEDS: Tamsulosin HCl 0.4 MG CAP PO SCH (09:38)
[2021-06-20] MEDS: Rosuvastatin 20 MG TAB PO SCH (09:38)
[2021-06-20] MEDS: Multivitamin W/ Minerals 1 TAB PO SCH (09:38)
[2021-06-20 16:33] VITALS: BP 109/52; TEMP 98.5
[2021-06-20] MEDS: cefTRIAXone\\ROCEPHIN 2 GM in Sodium Chloride 0.9% 100 ML IVPB SCH (16:33)
== END 2021-06-20 17:11 | disposition home or self-care (01) | DRG 812 ==
LOC: CSHERS 17:39 → INTOOBSV 23:13 → CSHTELE 23:13 → OBSVTOIN 06-19 11:06
PROVIDERS: ADMIT Student in an Organized Health Care Education/Training Program; ATTEND Hospitalist
PROC: 30233N1 Transfusion of Nonautologous Red Blood Cells into Peripheral Vein, Percutaneous Approach (ICD-10-PCS; principal; 2021-06-17)
DX: D64.9 Anemia, unspecified (principal); C94.6 Myelodysplastic disease, not elsewhere classified; K76.6 Portal hypertension; Z20.822 Contact with and (suspected) exposure to COVID-19; I10 Essential (primary) hypertension; N40.0 Benign prostatic hyperplasia without lower urinary tract symptoms; R79.89 Other specified abnormal findings of blood chemistry; I25.118 Atherosclerotic heart disease of native coronary artery with other forms of angina pectoris; D69.6 Thrombocytopenia, unspecified; K74.60 Unspecified cirrhosis of liver; E78.5 Hyperlipidemia, unspecified; Z88.8 Allergy status to other drugs, medicaments and biological substances; Z79.82 Long term (current) use of aspirin; Z79.899 Other long term (current) drug therapy; Z90.49 Acquired absence of other specified parts of digestive tract; Z82.49 Family history of ischemic heart disease and other diseases of the circulatory system; Z87.891 Personal history of nicotine dependence
CPT/HCPCS: 36415; 36430; 71045; 71275; 74177; 80048; 80053; 81003; 81015; 82150; 82553; 82607; 82746; 83690; 84145; 84484; 85025; 85060; 85379; 85652; 86140; 86850; 86900; 86901; 87040; 87449; 87899; 93005; 93306; 96374; 96375; G0378; J0696; J2270; J3490; P9016; P9040; Q9967

== ENCOUNTER 2021-06-24 12:08 | Outpatient (CLI) | payer MEDICARE, BC ==
[2021-06-24 13:32] LABS: Hemoglobin 8.9 g/dL (13.5-17.5); Mean Corpuscular HGB CONC 34.4 g/dL (32.0-36.0); Mean Corpuscular Hemoglobin 29.2 pg (27.0-33.0); Mean Corpuscular Volume 84.9 fl (81.2-95.1); RBC Distribution Width 15.9 % (11.5-14.5); Red Blood Cell (RBC) Count 3.05 10x6/uL (4.32-5.72); White Blood Cell (WBC) Count 7.9 10x3/uL (3.5-10.5)
[2021-06-24 13:33] LABS: Platelet Count 28 10x3/uL (150-450)
[2021-06-24 13:39] LABS: MDiff Complete? YES
[2021-06-24 14:15] LABS: Band 13 % (5-11); Eosinophils 2 % (0-10); Lymphocytes 31 % (21-51); Monocytes 2 % (0-10); Neutrophil 16 % (42-75); Nucleated RBC 1 % (0); Reactive Lymphocytes 12 % (0-10)
[2021-06-24 14:16] LABS: Differential Comment Blast-Like Cell(s)
[2021-06-24 14:19] LABS: Anisocytosis SLIGHT = 6-15 cells (100X) (0-5/hpf); Large Platelets MODERATE; Microcytosis SLIGHT = 6-15 cells (100X) (0-5/hpf); Platelet Morphology Comment Appears Decreased; Toxic Granulation SLIGHT
== END 2021-06-24 12:09 | disposition home or self-care (01) ==
LOC: CSHHS 12:08
PROVIDERS: ATTEND Internal Medicine Hematology & Oncology
DX: D72.829 Elevated white blood cell count, unspecified (principal); D47.1 Chronic myeloproliferative disease; D75.81 Myelofibrosis; D63.1 Anemia in chronic kidney disease; N18.30 Chronic kidney disease, stage 3 unspecified
CPT/HCPCS: 36415; 85025